=== PATIENT | female | born 1980 | race Caucasian/White ===

== ENCOUNTER 2017-04-05 07:04 | Day surgery (SDC) | payer BC ==
[~2017-04-05] VITALS: Ht 170.2 cm; Wt 55.0 kg
[~2017-04-05 07:04] MED LIST: AMBIEN5 M1 PO; LEXAPRO5 M1 PO; MULTIVITAMINS1 EAC6 PO; ULTRAM50 M1 PO
[2017-04-05 08:03] LABS: BASO % 0.4 % (0-2); EOS % 0.8 % (0-7); HCT-HEMATOCRIT 32.5 % (34.0-49.0); HGB-HEMOGLOBIN 10.7 gm/dl (12.0-15.5); LYMPH % 28.6 % (20-45); LYMPH ABSOLUTE COUNT 0.8 tho/cmm (0.8-4.5); MCH (MEAN CORPUSCULAR HGB) 33.2 pg (28.0-32.0); MCHC MEAN CORPUSCULAR HGB CONC 32.9 % (32.0-36.0); MCV (MEAN CELL VOLUME) 100.9 fl (82.0-96.0); MEAN PLATELET VOLUME 9.2 cmc (9.4-12.4); MONO % 7.1 % (0-12); MONOCYTE ABSOLUTE COUNT 0.2 tho/cmm (0.0-1.2); NEUTROPHIL ABSOLUTE COUNT 1.7 tho/cmm (1.6-8.0); NEUTROPHIL-AUTOMATED 1.7 tho/cmm (1.6-8.0); NEUTROPHILS % 63.1 % (40-80); PLATELET COUNT 139 tho/cmm (150-450); RED BLOOD COUNT 3.22 mil/cmm (4.00-5.20); RED CELL DISTRIBUTION WIDTH 13.9 % (12.4-16.4); WHITE BLOOD COUNT 2.7 tho/cmm (4.0-10.0)
[2017-04-06 08:48] LABS: EOS % 0.2 % (0-7); HCT-HEMATOCRIT 28.8 % (34.0-49.0); HGB-HEMOGLOBIN 9.4 gm/dl (12.0-15.5); IMMATURE GRANULOCYTES ABSOLUTE 0.01 tho/cmm (0-0.03); IMMATURE GRANULOCYTES PERCENT 0.2 % (0-0.3); LYMPH % 19.5 % (20-45); LYMPH ABSOLUTE COUNT 0.9 tho/cmm (0.8-4.5); MCH (MEAN CORPUSCULAR HGB) 32.9 pg (28.0-32.0); MCHC MEAN CORPUSCULAR HGB CONC 32.6 % (32.0-36.0); MCV (MEAN CELL VOLUME) 100.7 fl (82.0-96.0); MEAN PLATELET VOLUME 9.4 cmc (9.4-12.4); MONO % 8.6 % (0-12); MONOCYTE ABSOLUTE COUNT 0.4 tho/cmm (0.0-1.2); NEUTROPHIL ABSOLUTE COUNT 3.1 tho/cmm (1.6-8.0); NEUTROPHIL-AUTOMATED 3.1 tho/cmm (1.6-8.0); NEUTROPHILS % 71.5 % (40-80); PLATELET COUNT 105 tho/cmm (150-450); RED BLOOD COUNT 2.86 mil/cmm (4.00-5.20); RED CELL DISTRIBUTION WIDTH 13.7 % (12.4-16.4)
[2017-04-06 09:09] LABS: WHITE BLOOD COUNT 4.4 tho/cmm (4.0-10.0)
[2017-04-06] MEDS ORDERED: PERCOCET 5-3251 EACH PO (12:02)
--- NOTE | 2017-04-06 14:07 | NUR ---
VIRTUAL CARE NOTE: PT RESTING ON BED, AT BEDSIDE. PT READY FOR DISCHARGE INSTRUCTIONS, INFORMATION GIVEN TO PT, JOSÉ MIGUEL TEACHING REINFORCED, PT AND FEEL COMFORTABLE WITH DRAIN CARES. PT DENIES QUESTIONS OR CONCERNS. INFORMED FLOOR NURSE DISCHARGE TEACHING DONE.
== END 2017-04-06 14:30 ==
LOC: SRG 07:04 → SHSB 07:04 → ORW 11:52 → PACU 14:35 → 5WD 15:37 → SRG 04-06 14:30
PROVIDERS: Surgery
PROC: 0HTV0ZZ Resection of Bilateral Breast, Open Approach (ICD-10-PCS; principal; 2017-04-05)
DX: N60.32 Fibrosclerosis of left breast (principal); M16.11 Unilateral primary osteoarthritis, right hip; F41.9 Anxiety disorder, unspecified; F32.9 Major depressive disorder, single episode, unspecified; D70.2 Other drug-induced agranulocytosis; D69.59 Other secondary thrombocytopenia; Z79.899 Other long term (current) drug therapy; Z87.891 Personal history of nicotine dependence; Z80.3 Family history of malignant neoplasm of breast
CPT/HCPCS: A9520; J0690; J2250; J2270; J7121